=== PATIENT | male | born 1970 | race Caucasian/White ===

== ENCOUNTER → 2018-05-28 | Outpatient (CLI) | payer OTHER ==
[~2018-05-28] MED LIST: REGADENOSON 0.4 MG/5 ML SYRINGE IV ONE
--- NOTE | 2018-05-28 10:41 | EST ---
EXERCISE STRESS DATE OF SERVICE: 05/28/2018 AGE: 47 SEX: Male HT: 5'9" WT: 200 pounds PROTOCOL: Cardiolite Davis STAGE: III DURATION OF EXERCISE: 11 minutes HEART RATE REST: 57 BLOOD PRESSURE REST: 140/99 MAXIMUM HEART RATE ACHIEVED: 161 MAXIMUM BLOOD PRESSURE: 192/92 85% MPHR: 146 100% MPHR: 172 METS: 12 INDICATION: Chest pain. CLINICAL INFORMATION: Baseline EKG shows sinus rhythm with right bundle branch block. The patient exercised on Davis protocol for a total of 11 minutes achieving 12 METs, 93% of predicted maximal heart rate without chest pain or diagnostic ST-segment depression. CONCLUSIONS: 1. Excellent exercise tolerance. 2. Inconclusive EKG part of the stress test due to baseline EKG abnormalities. 3. Cardiolite portion of the stress test will be reported separately. MMODL / IJN: [id number] /
--- NOTE | 2018-05-28 13:53 | NM ---
EXAMINATION TYPE: NM stress cardiolite complete DATE OF EXAM: 05/28/2018 COMPARISON: NONE HISTORY: Atypical chest pain TECHNIQUE: After the intravenous administration of 10.13 mCi Tc 99m Sestamibi - Rest images obtained 50 minutes post injection. The patient exercised using a XANDER protocol and 1 minute prior to peak exercise was injected with 25.4 mCi Tc 99m Sestamibi - Stress images obtained 20 minutes post inject ion. The patient was stressed utilizing a modified Xander protocol. FINDINGS: Targeted heart rate was achieved during performance of the study. Review of stress and rest SPECT jayesh ges demonstrates no distinct perfusion abnormality. Gated analysis shows normal wall motion with an estimated left ventricular ejection fraction of 54 %. IMPRESSION: 1. No stress-induced ischemic change.
== END | disposition home or self-care (01) ==
LOC: RADNMMAIN 07:45
PROVIDERS: ATTEND Family Medicine
DX: R94.31 Abnormal electrocardiogram [ECG] [EKG] (principal); R07.89 Other chest pain
CPT/HCPCS: 93017; 78452; A9500; J2785

== ENCOUNTER 2021-11-26 19:24 | Emergency (ER) | payer OTHER ==
[2021-11-26 19:49] VITALS: RESP 18
--- NOTE | 2021-11-26 20:06 | ED ---
General Adult HPI - General Chief complaint: Back Pain/Injury Stated complaint: Back pain Time Seen by Provider: 11/26/21 19:56 Source: patient, RN notes reviewed Mode of arrival: ambulatory - History of Present Illness Initial comments: This is a pleasant 51-year-old male presents immersed for complaining of intermittent pain to his right mid back which is been present for about one week. Patient states is not related to activity. Not related to movement. She states it's been essentially constant, located in the right mid back, sharp in nature. Patient has had no chest pain. He now states he does feel sensation radiating around his right flank. No difficulty with bowel movements. No difficulty with urination. Patient states he did eat 2 pieces of pizza last night and had some fairly significant nausea. Patient has been using topical lidocaine patches. Patient denies any rash. States the pain is actually somewhat subsided at this time. No headache, no fever or chills, no changes in vision or hearing, no sore throat or difficulty with speech, no neck pain, no chest pain or shortness of breath, no abdominal pain, no nausea or vomiting, no changes in urination or bowel movements, no numbness or tingling, no extremity pain, no skin rashes or lesions. Past medical, surgical, social, and family history reviewed. - Related Data Home Medications Medication Instructions Recorded Confirmed Empaglifloz/Linaglip/Metformin 1 tab PO DAILY 11/26/21 11/26/21 [Trijardy Xr 5-2.5-1,000 mg Tab] atenoloL 100 mg PO HS 11/26/21 11/26/21 Previous Rx's Medication Instructions Recorded Cyclobenzaprine [Flexeril] 10 mg PO TID PRN #20 tab 11/26/21 Naproxen [Naprosyn] 375 mg PO Q12HR PRN #20 tablet 11/26/21 Allergies Allergy/AdvReac Type Severity Reaction Status Date / Time No Known Allergies Allergy Verified 11/26/21 21:17 Review of Systems ROS Statement: Those systems with pertinent positive or pertinent negative responses have been documented in the HPI. ROS Other: All systems not noted in ROS Statement are negative. Past Medical History Past Medical History: Hypertension History of Any Multi-Drug Resistant Organisms: None Reported Past Surgical History: No Surgical Hx Reported Past Psychological History: No Psychological Hx Reported Smoking Status: Never smoker Past Alcohol Use History: None Reported Past Drug Use History: None Reported General Exam - General Exam Comments Initial Comments: Does not appear to be ill or toxic. Patient in no distress. General appearance: alert, in no apparent distress Head exam: Present: atraumatic, normocephalic, normal inspection Eye exam: Present: normal appearance, PERRL, EOMI. Absent: scleral icterus, conjunctival injection, periorbital swelling ENT exam: Present: normal exam, mucous membranes moist Neck exam: Present: normal inspection. Absent: tenderness, meningismus, lymphadenopathy Respiratory exam: Present: normal lung sounds bilaterally. Absent: respiratory distress, wheezes, rales, rhonchi, stridor Cardiovascular Exam: Present: regular rate, normal rhythm, normal heart sounds. Absent: systolic murmur, diastolic murmur, rubs, gallop, clicks GI/Abdominal exam: Present: soft, normal bowel sounds. Absent: distended, tenderness, guarding, rebound, rigid Extremities exam: Present: normal inspection, full ROM, normal capillary refill. Absent: tenderness, pedal edema, joint swelling, calf tenderness Back exam: Present: normal inspection Neurological exam: Present: alert, oriented X3, CN II-XII intact Psychiatric exam: Present: normal affect, normal mood Skin exam: Present: warm, dry, intact, normal color. Absent: rash Course Vital Signs 11/26/21 19:45 Temperature 98.5 F Pulse Rate 58 L Respiratory 18 Rate Blood Pressure 167/94 O2 Sat by Pulse 99 Oximetry EKG Findings - EKG Comments: EKG Findings:: EKG done at 2022 and read by the ED attending physician reveals sinus rhythm with a rate of 60. Normal intervals aside from the QRS. Borderline left axis deviation. Right bundle branch block with a QRS duration is 152 ms. No definitive acute changes. No comparison study. Medical Decision Making - Medical Decision Making She presented with back pain, this is nonspecific, did not appear to be reproducible but was positional. Patient's workup here is essentially negative. No abdominal tenderness. Patient had no chest pain. Patient's EKG did show a right bundle branch block but no acute changes. Troponin was negative. D- dimer was negative. Case was discussed in detail with ED attending physician. I suspect this is musculoskeletal pain. Patient was told to return to the ER for any signs or symptoms worsen. Told to return immediately if any other problems arise. All questions answered. Treatment plan discussed. Patient in agreement Every effort has been made to ensure accuracy of this dictation. However, due to the limitations of electronic medical records and dictation devices, errors in charting still occur. The case was discussed in detail with ED attending physician. Presentation, findings, treatment plan discussed in detail. Coding Educator Dr. Carter - Lab Data Result diagrams: 11/26/21 20:45 11/26/21 20:45 Lab Results 11/26/21 11/26/21 11/26/21 Range/Units 20:45 20:45 20:45 WBC 7.1 (3.8-10.6) k/uL RBC 4.90 (4.30-5.90) m/uL Hgb 15.5 (13.0-17.5) gm/dL Hct 45.9 (39.0-53.0) % MCV 93.7 (80.0-100.0) fL MCH 31.6 (25.0-35.0) pg MCHC 33.8 (31.0-37.0) g/dL RDW 12.6 (11.5-15.5) % Plt Count 231 (150-450) k/uL MPV 7.6 Neutrophils % 67 % Lymphocytes % 23 % Monocytes % 5 % Eosinophils % 2 % Basophils % 0 % Neutrophils # 4.8 (1.3-7.7) k/uL Lymphocytes # 1.7 (1.0-4.8) k/uL Monocytes # 0.4 (0-1.0) k/uL Eosinophils # 0.1 (0-0.7) k/uL Basophils # 0.0 (0-0.2) k/uL D-Dimer (<0.60) mg/L FEU Sodium 138 (137-145) mmol/L Potassium 4.1 (3.5-5.1) mmol/L Chloride 104 (98-107) mmol/L Carbon Dioxide 25 (22-30) mmol/L Anion Gap 9 mmol/L BUN 23 H (9-20) mg/dL Creatinine 1.16 (0.66-1.25) mg/dL Est GFR (CKD-EPI)AfAm 84 (>60 ml/min/1.73 sqM) Est GFR (CKD-EPI)NonAf 73 (>60 ml/min/1.73 sqM) Glucose 128 H (74-99) mg/dL Calcium 9.4 (8.4-10.2) mg/dL Total Bilirubin 0.3 (0.2-1.3) mg/dL AST 28 (17-59) U/L ALT 24 (4-49) U/L Alkaline Phosphatase 115 (38-126) U/L Troponin I <0.012 (0.000-0.034) ng/mL Total Protein 7.5 (6.3-8.2) g/dL Albumin 4.7 (3.5-5.0) g/dL Lipase 86 (23-300) U/L 11/26/21 Range/Units 22:21 WBC (3.8-10.6) k/uL RBC (4.30-5.90) m/uL Hgb (13.0-17.5) gm/dL Hct (39.0-53.0) % MCV (80.0-100.0) fL MCH (25.0-35.0) pg MCHC (31.0-37.0) g/dL RDW (11.5-15.5) % Plt Count (150-450) k/uL MPV Neutrophils % % Lymphocytes % % Monocytes % % Eosinophils % % Basophils % % Neutrophils # (1.3-7.7) k/uL Lymphocytes # (1.0-4.8) k/uL Monocytes # (0-1.0) k/uL Eosinophils # (0-0.7) k/uL Basophils # (0-0.2) k/uL D-Dimer 0.26 (<0.60) mg/L FEU Sodium (137-145) mmol/L Potassium (3.5-5.1) mmol/L Chloride (98-107) mmol/L Carbon Dioxide (22-30) mmol/L Anion Gap mmol/L BUN (9-20) mg/dL Creatinine (0.66-1.25) mg/dL Est GFR (CKD-EPI)AfAm (>60 ml/min/1.73 sqM) Est GFR (CKD-EPI)NonAf (>60 ml/min/1.73 sqM) Glucose (74-99) mg/dL Calcium (8.4-10.2) mg/dL Total Bilirubin (0.2-1.3) mg/dL AST (17-59) U/L ALT (4-49) U/L Alkaline Phosphatase (38-126) U/L Troponin I (0.000-0.034) ng/mL Total Protein (6.3-8.2) g/dL Albumin (3.5-5.0) g/dL Lipase (23-300) U/L - Radiology Data Radiology results: report reviewed, image reviewed Disposition Clinical Impression: Acute back pain, Right bundle branch block (RBBB) determined by electrocardiography Disposition: HOME SELF-CARE Condition: Good Instructions (If sedation given, give patient instructions): Back Pain (ED) Additional Instructions: Follow-up with your regular physician as directed. Return to the ER immediately if any symptoms worsen, new symptoms arise, or any other problems develop. Is patient prescribed a controlled substance at d/c from ED?: No Referrals: Alejandro Antonio DO [Primary Care Provider] - 11/28/21 Time of Disposition: 23:20
--- NOTE | 2021-11-26 20:55 | XR ---
EXAMINATION TYPE: XR abdomen acute w cxr DATE OF EXAM: 11/26/2021 COMPARISON: NONE HISTORY: Pain TECHNIQUE: 3 views FINDINGS: Heart and mediastinum are normal. Lungs are clear. Diaphragm is normal. Bony thorax is inta ct. Supine and upright views of the abdomen show no sign of intestinal obstruction or pneumoperitoneu m. Fecal pattern is normal. No evidence of a mass. No calcification seen over the kidneys. IMPRESSION: Nonacute abdomen. Normal chest
[2021-11-26 21:09] LABS: Basophils % (A) 0 %; Eosinophils # (A) 0.1 k/uL (0-0.7); Eosinophils % (A) 2 %; HCT 45.9 % (39.0-53.0); HGB 15.5 gm/dL (13.0-17.5); Lymphocytes # (A) 1.7 k/uL (1.0-4.8); Lymphocytes % (A) 23 %; MCH 31.6 pg (25.0-35.0); MCHC 33.8 g/dL (31.0-37.0); MCV 93.7 fL (80.0-100.0); Mean Platelet Volume 7.6; Monocytes # (A) 0.4 k/uL (0-1.0); Monocytes % (A) 5 %; Neutrophils # (A) 4.8 k/uL (1.3-7.7); Neutrophils % (A) 67 %; Platelet Count 231 k/uL (150-450); RDW 12.6 % (11.5-15.5); WBC 7.1 k/uL (3.8-10.6)
[2021-11-26 21:34] LABS: Albumin 4.7 g/dL (3.5-5.0); Calcium 9.4 mg/dL (8.4-10.2); Potassium 4.1 mmol/L (3.5-5.1); Total Bilirubin 0.3 mg/dL (0.2-1.3); Total Protein 7.5 g/dL (6.3-8.2)
--- NOTE | 2021-11-26 21:39 | US ---
EXAMINATION TYPE: US gallbladder DATE OF EXAM: 11/26/2021 COMPARISON: NONE CLINICAL HISTORY: Right upper quadrant abdominal pain. Pt states RUQ pain that radiates to back TECHNIQUE: Multiple sonographic images of the right upper quadrant are obtained. FINDINGS: EXAM MEASUREMENTS: Liver Length: 17.0 cm Gallbladder Wall: 0.2 cm CBD: 0.4 cm Right Kidney: 10.8 x 4.6 x 5.2 cm BONDING EQUIPMENT OPERATOR NOTES: Pt not NPO Pancreas: wnl, tail obscured by overlying bowel gas Liver: Visualized portions appeared wnl Gallbladder: Contracted- pt not NPO, limited visualization shows no definite gallstones, wall not th ickened Evidence for sonographic Lindsay's sign: No CBD: wnl Right Kidney: wnl IMPRESSION: No gallstones or dilated ducts. No free fluid.
[2021-11-26] MEDS ORDERED: CYCLOBENZAPRINE 10MG STARTER 3 TAB BTL PO STA (23:18)
[2021-11-26] MEDS ORDERED: ACET/COD 300 MG/30 MG STARTER PACK 6 TAB BTL PO STA (23:18)
[2021-11-26] MEDS ORDERED: IBUPROFEN 600 MG STARTER PACK 4 TAB BTL PO STA (23:18)
[2021-11-27 00:06] VITALS: BP 158/80; PULSE 66; TEMP 98.2
== END 2021-11-27 00:10 | disposition home or self-care (01) ==
LOC: EC 19:24
DX: M54.50 Low back pain, unspecified (principal); I45.10 Unspecified right bundle-branch block; I10 Essential (primary) hypertension
CPT/HCPCS: 36415; 74022; 76705; 80053; 83690; 84484; 85025; 85379; 93005; 99284